=== PATIENT | female | born 1965 | race Caucasian/White ===

== ENCOUNTER 2017-11-07 08:58 | Outpatient (CLI) | payer OTHER | END 2017-11-07 08:59 | disposition home or self-care (01) | LOC: DTY/OP 08:58 | PROVIDERS: ATTEND Family Medicine | DX: E66.9 Obesity, unspecified (principal) | CPT/HCPCS: 97802 ==

== ENCOUNTER 2019-01-30 12:49 | Outpatient (CLI) | payer OTHER ==
--- NOTE | 2019-01-30 13:53 | ULT ---
THYROID ULTRASOUND: HISTORY: Thyroid nodule. COMPARISON: None. TECHNIQUE: Sagittal and transverse imaging of the thyroid gland is performed. FINDINGS: The right thyroid lobe measures 1.5 x 4.7 x 1.2 cm. The left thyroid lobe measures 1.4 x 1.2 x 4.5 cm. Thyroid isthmus is 0.3 cm in diameter. No evidence of a solid, solid/cystic, or cystic nodule. IMPRESSION: Unremarkable thyroid ultrasound. POS: [facility]NA [facility]
== END 2019-01-30 12:50 | disposition home or self-care (01) ==
LOC: BICULT 12:49
PROVIDERS: ATTEND Family Medicine
DX: E04.1 Nontoxic single thyroid nodule (principal)
CPT/HCPCS: 76536

== ENCOUNTER 2020-11-16 13:43 | Outpatient (CLI) | payer BC | END 2020-11-16 13:44 | disposition home or self-care (01) | LOC: BICULT 13:43 | PROVIDERS: ATTEND Family Medicine | DX: E04.1 Nontoxic single thyroid nodule (principal) | CPT/HCPCS: 76536 ==

== ENCOUNTER 2021-11-20 16:17 | Outpatient (CLI) | payer OTHER, BC | END 2021-11-20 16:18 | disposition home or self-care (01) | LOC: SCSRAD 16:17 | PROVIDERS: ATTEND Family Medicine | DX: S83.421A Sprain of lateral collateral ligament of right knee, initial encounter (principal); S83.206A Unspecified tear of unspecified meniscus, current injury, right knee, initial encounter; S76.111D Strain of right quadriceps muscle, fascia and tendon, subsequent encounter; M25.551 Pain in right hip; V87.7XXA Person injured in collision between other specified motor vehicles (traffic), initial encounter ==

== ENCOUNTER 2022-01-03 13:31 | Outpatient (CLI) | payer BC | END 2022-01-03 13:32 | disposition home or self-care (01) | LOC: SCSMRI 13:31 | PROVIDERS: ATTEND Family Medicine | DX: S76.101A Unspecified injury of right quadriceps muscle, fascia and tendon, initial encounter (principal) ==